=== PATIENT | female | born 1980 | race Caucasian/White ===

== ENCOUNTER → 2016-04-23 | Outpatient (CLI) | payer MEDICAID ==
--- NOTE | 2016-04-23 15:47 | US ---
Transabdominal Pelvic Ultrasound History: 36-year-old with history of left oophorectomy in 2013 and right ovarian cystectomy in 2014, LMP April 03, 2016. History of cysts. Comparison: Pelvic ultrasound June 15, 2015. Findings: The uterus measures 9.1 x 4.4 x 4.1 cm. A 1 cm hypoechoic subserosal structure in the anterior uterus suggesting a fibroid is less conspicuous than on the prior study. The endometrium is homogeneous and measures 8 mm. The left ovary is surgically absent. The right ovary measures 3.3 x 2.3 x 3.6 cm. A s imple 1.2 x 1.5 x 1.6 cm right ovarian cyst is present. Normal arterial blood flow is documented to t he right ovary by Doppler ultrasound. The bladder is normal. There is no free fluid. Impression: 1. Normal right ovary. 2. Limited visualization of an anterior subserosal fibroid seen previously.
== END ==
LOC: BRMIMAGING 14:40
PROVIDERS: ATTEND Obstetrics & Gynecology
DX: Z87.42 Personal history of other diseases of the female genital tract (principal); Z09 Encounter for follow-up examination after completed treatment for conditions other than malignant neoplasm
CPT/HCPCS: 76856-PO